=== PATIENT | female | born 1965 | race Caucasian/White ===

== ENCOUNTER → 2017-02-05 | Outpatient (CLI) | payer OTHER ==
--- NOTE | 2017-02-05 14:08 | US ---
EXAM DESCRIPTION: Venous,Lower Extremity LT CLINICAL HISTORY: Pain in left calf. COMPARISON: None Available. TECHNIQUE: Left lower extremity venous grayscale, spectral, and color Doppler sonographic images. FINDINGS: There is occlusive deep venous thrombosis demonstrated in the superficial femoral, popliteal, posterior tibial, and peroneal veins. IMPRESSION: Extensive deep venous thrombosis of the left lower leg involving the superficial femoral, popliteal, posterior tibial, and peroneal veins. The finding was discussed with Sarah Corona RN, on 02/05/2017 at 1405 hours. Electronically signed by: Delfin Schumacher MD 02/05/2017 2:07 PM CDT
== END | disposition home or self-care (01) ==
LOC: US 12:58
PROVIDERS: ATTEND Emergency Medicine
DX: I82.4Z2 Acute embolism and thrombosis of unspecified deep veins of left distal lower extremity (principal)